=== PATIENT | female | born 1935 | race Caucasian/White ===

== ENCOUNTER 2018-10-12 23:46 | Emergency (ER) | payer OTHER | END 2018-10-13 01:41 | disposition home or self-care (01) | LOC: EDH 23:46 | DX: S00.83XA Contusion of other part of head, initial encounter (principal); S60.221A Contusion of right hand, initial encounter; S80.212A Abrasion, left knee, initial encounter; E11.9 Type 2 diabetes mellitus without complications; I10 Essential (primary) hypertension; W18.39XA Other fall on same level, initial encounter; Y93.01 Activity, walking, marching and hiking; Y92.89 Other specified places as the place of occurrence of the external cause; Y99.8 Other external cause status | CPT/HCPCS: 12031; 70450; 72125; 73130; 93005 ==

== ENCOUNTER 2019-08-22 12:00 | Inpatient (IN) | payer OTHER ==
[~2019-08-22] VITALS: Ht 157.5 cm; Wt 57.2 kg
[2019-08-22] VITALS (20 sets, daily range): BP systolic 94–140; BP diastolic 56–91
[~2019-08-22 12:00] MED LIST: ATROPINE SULFATE 0.1 MG/ML 10 ML SYG IVP ONE; DOPAMINE HCL 400 MG/D5%-WATER 250 ML IV ONE; EPINEPHRINE 0.1 MG/ML 10 ML SYG IVP ONE; SODIUM BICARB 8.4% 50ML SYRINGE IVP ONE
[2019-08-22 12:26] LABS: ABG BASE EXCESS -8.9 mmol/L (-2.0-3.0); ABG HCO3 23.8 mmol/L (21.0-28.0); ABG OXYGEN SATURATION 81.1 % (95.0-99.0); ABG PCO2 99 mmHg (32-45)
[2019-08-22] MEDS ORDERED: NOREPINEPHRINE BITARTRATE 1 MG/1 ML ML IV ONE (12:26)
[2019-08-22] MEDS ORDERED: SODIUM CHLORIDE 0.9% 100 ML IV ONE (12:27)
[2019-08-22 12:34] LABS: BASOPHILS % (AUTO) 0.2 % (0.0-5.0); EOSINOPHILS % (AUTO) 0.4 % (0.0-8.0); HEMATOCRIT 41.5 % (36-48); LYMPHOCYTES % (AUTO) 36.9 % (21.0-51.0); MEAN CORPUSCULAR HEMOGLOBIN 28.8 pg (27.0-33.0); MEAN CORPUSCULAR HGB CONC 30.5 g/dL (32.0-36.0); MEAN CORPUSCULAR VOLUME 94.5 fL (79-99); MONOCYTES % (AUTO) 5.2 % (3.0-13.0); NEUTROPHILS % (AUTO) 57.3 % (40.0-77.0); NUCLEATED RED BLOOD CELLS 0.1 % (0.0-0.19); PLATELET COUNT (AUTO) 155 K/uL (130-400); RED BLOOD CELL COUNT(AUTO) 4.39 MIL/uL (4.00-5.50); RED CELL DISTRIBUTION WIDTH 18.4 % (11.0-15.5); WHITE BLOOD COUNT (AUTO) 21.9 K/uL (4.8-10.8)
[2019-08-22 12:49] LABS: POTASSIUM 4.2 mmol/L (3.5-5.1); TOTAL PROTEIN, SERUM 5.4 g/dL (6.0-8.3)
--- NOTE | 2019-08-22 12:55 | NUR ---
EVELIN Pabon present for evelin mccabe. Sw provided with emotional support. Pt states they have been 60 years and he would like to keep her around a while longer. Pt does not have any directives in place. Cylinder Press Operator David with providing spiritual support.
[2019-08-22 13:20] LABS: INR 1.26 (0.85-1.15); PROTHROMBIN TIME 12.9 SEC (9.6-11.6)
[2019-08-22 13:40] LABS: APPEARANCE,URINE Clear (CLEAR); BILIRUBIN,URINE Negative (NEGATIVE); COLOR,URINE Dark Yellow (YELLOW); GLUCOSE, URINE (UA) Negative (NEGATIVE); KETONES,URINE Negative (NEGATIVE); LEUKOCYTE ESTERASE ,URINE Trace (NEGATIVE); NITRATE,URINE Negative (NEGATIVE); OCCULT BLOOD,URINE Negative (NEGATIVE); PROTEIN,URINE Trace mg/dL (NEGATIVE)
[2019-08-22 14:11] LABS: BACTERIA,URINE Many /HPF (None Seen); RBC,URINE 0-1 /HPF (0-1); SQUAMOUS EPITHELIAL CELL,UR Rare /HPF (0-2); WBC,URINE 0-1 /HPF (0-1)
--- NOTE | 2019-08-22 14:50 | NUR ---
f/u Sw present when Dr Vasquez spoke to regarding pt's condition, poor prognosis and code status. not wanting to sign DNR till after he speaks to his children. called daughter on phone and she told him not to sign anything, to wait a few days. Sw offered to have daughter speak to Dr Vasquez. Dr Vasquez currently speaking to daughter about condition, poor prognosis and code status.
[2019-08-22] MEDS ORDERED: FISH1CAP63 PO (15:12)
[2019-08-22] MEDS ORDERED: BETA60L TP (15:12)
[2019-08-22] MEDS ORDERED: LOSA1TAB37 PO (15:12)
[2019-08-22] MEDS ORDERED: LOVA20TA3 PO (15:12)
[2019-08-22] MEDS ORDERED: ASPI-555 PO (15:12)
[2019-08-22] MEDS ORDERED: TRIA1KT.2 TP (15:12)
[2019-08-22] MEDS ORDERED: FLUT16H NASAL (15:12)
[2019-08-22] MEDS ORDERED: CARV12.511 PO (15:12)
[2019-08-22] MEDS ORDERED: METF-444 PO (15:12)
[2019-08-22] MEDS ORDERED: LUTE6CAP2 PO (15:12)
[2019-08-22] MEDS ORDERED: LORAZEPAM 2 MG/ML 1 ML VIAL IVP PRN (15:15)
[2019-08-22] MEDS ORDERED: MAGNESIUM 2GM PREMIX 50ML 50 ML IV PRN (15:15)
[2019-08-22] MEDS ORDERED: PROPOFOL 1000 MG/100 ML IV PRN (15:15)
[2019-08-22] MEDS ORDERED: POTASSIUM CHLORIDE 20MEQ/100ML 100 ML IV PRN (15:15)
[2019-08-22] MEDS ORDERED: LIDOCAINE HCL-MPF 1% 2ML VIAL IV PRN (15:15)
[2019-08-22] MEDS ORDERED: CALCIUM GLUCONATE 1 GM in SODIUM CHLORIDE 0.9% 50 ML IV PRN (15:15)
--- NOTE | 2019-08-22 16:10 | NUR ---
Dr. Vasquez made aware of Cooling blanket written order inquiry. Place cooling blanket to maintain temp: 98.6f? Asked for specific ranges for cooling blanket temp range. As well as, another ABG order? Pending response at this time.
--- NOTE | 2019-08-22 16:15 | NUR ---
Cooling [place] No cooling blanket in CCU. Pending Machine to be brought up from ER, and [place] and Probe to be brought from [employer]. Ice Packs applied in an effort to satisfy request at this time.
[2019-08-22] MEDS ORDERED: DOPAMINE 800MG/D5 250ML 250 ML IV SCH (16:30)
[2019-08-22] MEDS ORDERED: NOREPINEPHRINE 4MG/NS 250ML 250 ML IV SCH (16:30)
[2019-08-22] MEDS ORDERED: PROPOFOL 1000 MG/100 ML 100 ML IV PRN (16:30)
[2019-08-22 17:22] LABS: ALBUMIN 2.3 g/dL (3.5-5.0); BILIRUBIN,TOTAL 3.1 mg/dL (0.2-1.0); POTASSIUM 3.5 mmol/L (3.5-5.1)
[2019-08-22] MEDS: DEXAMETHASONE SOD PHOSPHATE 4 MG/ML 1ML VIAL IVP SCH (18:00)
[2019-08-22] MEDS: LACTATED RINGERS 1000ML 1,000 ML IV SCH (18:00)
[2019-08-22] MEDS: INSULIN HUMULIN R 100 UNIT/ML 3ML SQ SCH ×2 (18:04→20:50)
--- NOTE | 2019-08-22 18:14 | NUR ---
Dopamine off 1714
[2019-08-22 18:21] LABS: ABG HCO3 14.5 mmol/L (21.0-28.0); ABG OXYGEN SATURATION 97.1 % (95.0-99.0); ABG PCO2 29 mmHg (32-45)
--- NOTE | 2019-08-22 19:30 | NUR ---
ASSESSMENT PT RESTING IN BED, UNRESPONSIVE, NOT FOLLOWING COMMANDS. IV FLUIDS INFUSING WITHOUT DIFFICULTY. ETT 7.5, 24 CM AT LIP A/C-18-50%-460 PEEP 5. OGT TO L.I.W.S. 18FR CALLEJAS CATH. ASSESSMENT COMPLETED, SEE FLOW SHEET. PT ORIENTED TO CALL[place] ND WITHIN REACH. WHITE BOARD UP-DATED.
[2019-08-22] MEDS: FAMOTIDINE/PF 20 MG/2 ML VIAL IV SCH (20:45)
[2019-08-22] MEDS: LEVETIRACETAM 750 MG in SODIUM CHLORIDE 0.9% 100 ML IV SCH (20:54)
[2019-08-22] MEDS: NOREPINEPHRINE 4MG/NS 250ML IV SCH (21:12)
[2019-08-23] VITALS (72 sets, daily range): BP systolic 94–145; BP diastolic 37–91
[2019-08-23] MEDS: INSULIN HUMULIN R 100 UNIT/ML 3ML SQ SCH ×6 (00:15→20:15)
[2019-08-23] MEDS: DEXAMETHASONE SOD PHOSPHATE 4 MG/ML 1ML VIAL IVP SCH ×4 (01:51→17:06)
[2019-08-23] MEDS: NOREPINEPHRINE 4MG/NS 250ML IV SCH ×2 (02:08→20:19)
[2019-08-23] MEDS: LACTATED RINGERS 1000ML 1,000 ML IV SCH ×2 (02:09→20:18)
--- NOTE | 2019-08-23 03:00 | NUR ---
ASSESSMENT PT RESTING IN BED, UNRESPONSIVE, NOT FOLLOWING COMMANDS. IV FLUIDS INFUSING WITHOUT DIFFICULTY. ETT 7.5, 24 CM AT LIP A/C-18-50%-460 PEEP 5. OGT TO L.I.W.S. 18FR CALLEJAS CATH. ASSESSMENT COMPLETED, SEE FLOW SHEET. CALLBELL WITHIN REACH.
[2019-08-23 04:09] LABS: HEMATOCRIT 47.2 % (36-48); MEAN CORPUSCULAR HEMOGLOBIN 28.3 pg (27.0-33.0); MEAN CORPUSCULAR HGB CONC 31.3 g/dL (32.0-36.0); MEAN CORPUSCULAR VOLUME 90.5 fL (79-99); PLATELET COUNT (AUTO) 136 K/uL (130-400); RED BLOOD CELL COUNT(AUTO) 5.21 MIL/uL (4.00-5.50); RED CELL DISTRIBUTION WIDTH 17.7 % (11.0-15.5)
[2019-08-23 04:12] LABS: WHITE BLOOD COUNT (AUTO) 47.3 K/uL (4.8-10.8)
--- NOTE | 2019-08-23 04:17 | NUR ---
JENNIFER RODRIGUEZ CALLED [phone] FOR A GCS OF (3). JENNIFER DENIED D/T AGE. REFERENCE NUMBER [id number]. INSTRUCTED TO NOTIFY JENNIFER AT TIME OF
[2019-08-23 04:35] LABS: BAND NEUTROPHILS % (MANUAL) 5 % (0-2); LYMPHOCYTES % (MANUAL) 9 % (22-44); MAN.DIFF COMMENT-IMPRESSION MANUAL DIFFERENTIAL; MONOCYTES % (MANUAL) 4 % (2-9); SEGMENTED NEUTROPHILS % 82 % (40-70)
[2019-08-23 04:36] LABS: PLATELET MORPHOLOGY COMMENT LARGE PLTS PRESENT
[2019-08-23 04:59] LABS: ALBUMIN 2.3 g/dL (3.5-5.0); BILIRUBIN,TOTAL 2.3 mg/dL (0.2-1.0); CREATININE 1.2 mg/dL (0.5-1.5); POTASSIUM 3.4 mmol/L (3.5-5.1); TOTAL PROTEIN, SERUM 6.1 g/dL (6.0-8.3)
[2019-08-23 05:06] LABS: ABG BASE EXCESS -2.8 mmol/L (-2.0-3.0); ABG HCO3 18.4 mmol/L (21.0-28.0); ABG OXYGEN SATURATION 98.3 % (95.0-99.0); ABG PCO2 24 mmHg (32-45)
--- NOTE | 2019-08-23 06:00 | NUR ---
TOMMY BASSETT MADE AWARE OF LAB RESULTS, ABG'S, KCL, WBC, AND TROPONIN LEVEL
--- NOTE | 2019-08-23 06:54 | NUR ---
REPORT BEDSIDE REPORT GIVEN TO ARMIDA GIRON, LABS REVIEWED AND CARE ENDORSED
[2019-08-23] MEDS ORDERED: FENTANYL CITRATE PF 50 MCG/1 ML 2ML VIAL ONE (08:07)
[2019-08-23] MEDS: FAMOTIDINE/PF 20 MG/2 ML VIAL IV SCH (08:16)
[2019-08-23] MEDS: LEVETIRACETAM 750 MG in SODIUM CHLORIDE 0.9% 100 ML IV SCH ×2 (08:17→20:18)
[2019-08-23] MEDS ORDERED: COMPOUND IV MISC 1 EACH IVSOLN MISC PRN (11:45)
[2019-08-23] MEDS ORDERED: VANCOMYCIN PROTOCOL PER PHARMACY IV SCH (12:00)
[2019-08-23] MEDS: ENOXAPARIN SODIUM 40 MG/0.4 ML SYRINGE SQ SCH (13:07)
[2019-08-23] MEDS: ZOSYN 3.375GM+NS 50ML 50 ML IV SCH (13:07)
--- NOTE | 2019-08-23 13:22 | NUR ---
PATIENT DOES NOT PRESENT WITH ANY SKIN BREAKDOWN OR OPEN WOUNDS AT THIS TIME, PER FLOOR NURSE MACK HUFFMAN; NO [facility] RECOMMENDATIONS SUBMITTED. Addendum: 08/23/19 at 1324 by ROSE HOWE LVN LVN W Amended: Links added.
[2019-08-23] MEDS: LEVOFLOXACIN 750 MG/D5W 150 ML 150 ML IV SCH (13:47)
--- NOTE | 2019-08-23 13:53 | NUR ---
PALLIATIVE Sw spoke to nurse Bernard. No family at bedside. Pt is now DNR. Daughter coming from [facility] tomorrow. Sw to follow up
[2019-08-23] MEDS ORDERED: VANCOMYCIN 1GM+NS 250ML 250 ML IV ONE (16:00)
--- NOTE | 2019-08-23 16:26 | NUR ---
Sw spoke to pt's . states "she was gone when she got here" " I am waiting for my daughter to get here tomorrow and we are going to pull plug" Sw provided emotional support
--- NOTE | 2019-08-23 16:47 | NUR ---
DC PLAN VISITED WITH PATIENT. PATIENT LIVES WITH SPOUSE. PATIENT HAS ARRESTED SEVERAL TIMES. PIT AND AUXILIARIES SUPERVISOR WORKING ON CASE. BENCHMARK RECOMMENDING WITHDRAWL OR AT LEAST DNR/DNI. PENDING DAUGHTER TO ARRIVE. Addendum: 08/23/19 at 1653 by BENNY COVARRUBIAS RN CM Amended: Links added.
[2019-08-23 21:35] LABS: APPEARANCE,URINE Turbid (CLEAR); BILIRUBIN,URINE Moderate (NEGATIVE); COLOR,URINE Dark Yellow (YELLOW); GLUCOSE, URINE (UA) TRACE mg/dL (NEGATIVE); KETONES,URINE Trace mg/dL (NEGATIVE); LEUKOCYTE ESTERASE ,URINE Moderate (NEGATIVE); NITRATE,URINE Positive (NEGATIVE); OCCULT BLOOD,URINE Moderate (NEGATIVE); PROTEIN,URINE POS 2+ mg/dL (NEGATIVE)
[2019-08-23 21:54] LABS: BACTERIA,URINE Moderate /HPF (None Seen); SQUAMOUS EPITHELIAL CELL,UR 0-2 /HPF (0-2)
[2019-08-23 21:55] LABS: MUCUS,URINE Moderate LPF (None Seen)
[2019-08-24] VITALS (66 sets, daily range): BP systolic 85–139; BP diastolic 37–86
[2019-08-24] MEDS: INSULIN HUMULIN R 100 UNIT/ML 3ML SQ SCH ×6 (00:15→22:49)
[2019-08-24] MEDS: ZOSYN 3.375GM+NS 50ML 50 ML IV SCH ×2 (01:30→14:24)
[2019-08-24 04:38] LABS: ABG BASE EXCESS -10.9 mmol/L (-2.0-3.0); ABG HCO3 11.7 mmol/L (21.0-28.0); ABG OXYGEN SATURATION 96.5 % (95.0-99.0); ABG PCO2 21 mmHg (32-45)
[2019-08-24 06:31] LABS: ALBUMIN 1.9 g/dL (3.5-5.0); BILIRUBIN,TOTAL 3.1 mg/dL (0.2-1.0); CREATININE 1.4 mg/dL (0.5-1.5); POTASSIUM 4.3 mmol/L (3.5-5.1); TOTAL PROTEIN, SERUM 5.7 g/dL (6.0-8.3)
[2019-08-24] MEDS: DEXAMETHASONE SOD PHOSPHATE 4 MG/ML 1ML VIAL IVP SCH ×5 (06:39→23:30)
[2019-08-24] MEDS: VANCOMYCIN 500MG+NS 100ML 100 ML IV SCH ×2 (06:39→17:06)
[2019-08-24 07:19] LABS: MEAN CORPUSCULAR HEMOGLOBIN 28.4 pg (27.0-33.0); MEAN CORPUSCULAR HGB CONC 31.3 g/dL (32.0-36.0); MEAN CORPUSCULAR VOLUME 90.6 fL (79-99); PLATELET COUNT (AUTO) 93 K/uL (130-400); RED BLOOD CELL COUNT(AUTO) 5.07 MIL/uL (4.00-5.50); RED CELL DISTRIBUTION WIDTH 18.1 % (11.0-15.5)
[2019-08-24 07:25] LABS: WHITE BLOOD COUNT (AUTO) 52.2 K/uL (4.8-10.8)
[2019-08-24 07:46] LABS: LYMPHOCYTES % (MANUAL) 7 % (22-44); MAN.DIFF COMMENT-IMPRESSION MANUAL DIFFERENTIAL; MONOCYTES % (MANUAL) 2 % (2-9); SEGMENTED NEUTROPHILS % 91 % (40-70)
[2019-08-24 07:47] LABS: PLATELET MORPHOLOGY COMMENT DECREASED
[2019-08-24] MEDS: LACTATED RINGERS 1000ML 1,000 ML IV SCH (07:58)
[2019-08-24] MEDS: ENOXAPARIN SODIUM 40 MG/0.4 ML SYRINGE SQ SCH (08:07)
[2019-08-24] MEDS: FAMOTIDINE/PF 20 MG/2 ML VIAL IV SCH (08:07)
[2019-08-24] MEDS: LEVETIRACETAM 750 MG in SODIUM CHLORIDE 0.9% 100 ML IV SCH ×2 (08:07→22:47)
[2019-08-24] MEDS ORDERED: COMPOUND IV REFRIGERATED 1 EACH IVSOLN MISC PRN (08:15)
[2019-08-24] MEDS ORDERED: FENTANYL 2500MCG+NS 250ML 250 ML IV PRN (08:30)
[2019-08-24] MEDS: SODIUM BICARB 8.4% 50ML SYRING 150 MEQ in DEXTROSE 5%-WATER 1,000 ML IV SCH ×2 (09:01→20:15)
--- NOTE | 2019-08-24 10:06 | NUR ---
f/u No family at bedside. Per nurse Bernard, we continue to wait for daughter Samantha to arrive.
[2019-08-24] MEDS: NOREPINEPHRINE 4MG/NS 250ML IV SCH (11:04)
[2019-08-24] MEDS ORDERED: VANCOMYCIN 750MG + NS 250 ML IV SCH ×2 (12:00)
--- NOTE | 2019-08-24 13:55 | NUR ---
RD Notification Admitted s/p Cardiac arrest. Pt Hx of DM, HTN. Notification for tube feeding recommendations received. Tube feeding recommendations: Glucerna 1.5, Goal Rate: 40mls/hr (1440kcal/79gm Protein). Recommended flushes: 130 Q6hrs. Pt LBM 08/22/19. Pt monitored labs: Na 148, CO2 15, BUN 35, GFR 38, T. Bili 3.1, AST 919, ALT 986, Alk 176, Alb 1.9. RD to continue to monitor. Please notify RD as additional nutrition concerns arise. Thank you. Addendum: 08/24/19 at [address] Amended: Links added.
--- NOTE | 2019-08-24 16:00 | NUR ---
[facility] consult Patient assessed as ordered. Patient with purple area with fluid-filled blister to coccyx. Origin of wound possibly due to fall at home. [facility] recommendations submitted. Addendum: 08/24/19 at 1628 by CLAIRE ZELAYA RN/KRUPA Amended: Links added.
[2019-08-25] VITALS (49 sets, daily range): BP systolic 91–160; BP diastolic 45–75
[2019-08-25] MEDS: NOREPINEPHRINE 4MG/NS 250ML IV SCH (01:06)
[2019-08-25] MEDS: INSULIN HUMULIN R 100 UNIT/ML 3ML SQ SCH ×4 (01:18→12:06)
[2019-08-25] MEDS: ZOSYN 3.375GM+NS 50ML 50 ML IV SCH ×2 (02:51→13:30)
[2019-08-25] MEDS: VANCOMYCIN 500MG+NS 100ML 100 ML IV SCH ×2 (04:46→06:00)
[2019-08-25] MEDS: DEXAMETHASONE SOD PHOSPHATE 4 MG/ML 1ML VIAL IVP SCH ×2 (05:33→11:48)
[2019-08-25 05:37] LABS: HEMATOCRIT 36.5 % (36-48); MEAN CORPUSCULAR HGB CONC 32.7 g/dL (32.0-36.0); MEAN CORPUSCULAR VOLUME 88.6 fL (79-99); NUCLEATED RED BLOOD CELLS 0.2 % (0.0-0.19); PLATELET COUNT (AUTO) 82 K/uL (130-400); RED BLOOD CELL COUNT(AUTO) 4.12 MIL/uL (4.00-5.50)
[2019-08-25 05:47] LABS: WHITE BLOOD COUNT (AUTO) 32.5 K/uL (4.8-10.8)
[2019-08-25 05:57] LABS: CREATININE 2.2 mg/dL (0.5-1.5); POTASSIUM 3.9 mmol/L (3.5-5.1)
[2019-08-25 06:24] LABS: BAND NEUTROPHILS % (MANUAL) 2 % (0-2); LYMPHOCYTES % (MANUAL) 8 % (22-44); MONOCYTES % (MANUAL) 2 % (2-9); SEGMENTED NEUTROPHILS % 88 % (40-70)
[2019-08-25 06:25] LABS: MAN.DIFF COMMENT-IMPRESSION MANUAL DIFFERENTIAL; PLATELET MORPHOLOGY COMMENT MARKED DECREASE
--- NOTE | 2019-08-25 06:30 | NUR ---
VANCO TROUGH 0600 VANCOMYCIN HOLD VANCO TROUGH 29.5
[2019-08-25] MEDS: SODIUM BICARB 8.4% 50ML SYRING 150 MEQ in DEXTROSE 5%-WATER 1,000 ML IV SCH (06:39)
[2019-08-25] MEDS: FAMOTIDINE/PF 20 MG/2 ML VIAL IV SCH (08:29)
[2019-08-25] MEDS: ENOXAPARIN SODIUM 40 MG/0.4 ML SYRINGE SQ SCH (08:30)
[2019-08-25] MEDS: LEVETIRACETAM 750 MG in SODIUM CHLORIDE 0.9% 100 ML IV SCH (08:30)
[2019-08-25] MEDS: LEVOFLOXACIN 750 MG/D5W 150 ML 150 ML IV SCH (11:48)
[2019-08-25] MEDS ORDERED: LORAZEPAM 2 MG/ML 1 ML VIAL IVP PRN (13:00)
--- NOTE | 2019-08-25 13:00 | NUR ---
WITHDRAWL OF LIFE SUPPORT PATIENT TO BE TAKEN OFF VENTILATOR AND ANY MEASURES OF LIFE SUPPORT PER FAMILY REQUEST. COMFORT MEASURES ONLY Addendum: 08/25/19 at 1704 by NORMAN ORNELAS RN RN WITHDRAWL OF LIFE SUPPORT PATIENT TO BE TAKEN OFF VENTILATOR AND ANY MEASURES OF LIFE SUPPORT PER FAMILY REQUEST. COMFORT MEASURES ONLY; PER , WE ARE TO CALL [facility] ONCE PATIENT HAS
--- NOTE | 2019-08-25 15:00 | NUR ---
EXTUBATED PATIENT EXTUBATED AND PLACED ON 40%CAM; REMAINS UNRESPONSIVE; FAMILY NOT AT BEDSIDE; ASKED THAT WE CALL HIM IF PATIENT EXPIRES OR IS TRANSFERRED TO MEDICAL FLOOR; WITHDRAWL OF CARE FORM SIGNED BY AND DAUGHTER AT 1300 TODAY
[2019-08-25] MEDS: MORPHINE SULFATE 2 MG/ML 1ML SYG IVP PRN (15:13)
--- NOTE | 2019-08-25 18:00 | NUR ---
TRANSFER/DOWNGRADE PATIENT TRANSFERRED TO ROOM 316 AND REPORT GIVEN TO AARON MED SURG NURSE; PATIENT'S , NOEL, ALSO INFORMED OF PATIENT TRANSFER
--- NOTE | 2019-08-25 18:00 | NUR ---
REPORT RECEIVED FROM DARIAN 2ND. FLOOR,ICU. PT. NOW TO ROOM 316. REPORTED PT. IS UNRESPONSIVE. PUPILS ARE A 1 AND FIXED. SKIN IS VERY PALE AND COOL TO TOUCH. DNR AND CARE LIMITED TO COMFORT MEASURES ONLY. PER ICU NURSE, AND DAUGHTER HAVE SAID THEIR GOD-BYES AND WANT TO BE CALLED WHEN SHE PASSES. ARRANGEMENTS ARE SUPPOSEDLY ALREADY MADE AT [facility] HOME. REPORT NOW PASSED ON TO PM NURSE.
--- NOTE | 2019-08-25 20:00 | NUR ---
PATIENT SEEN AND MADE ROUNDS. PATIENT UNRESPONSIVE, RR 40 BREATH/MIN, MAINTAINED ON O2 . COMFORT MEASURES RENDERED.
--- NOTE | 2019-08-25 20:30 | NUR ---
ASSESS SHIFT ASSESSMENT DONE, PLEASE REFER TO CHART. PT ON COMFORT MEASURES AT THIS TIME. WILL MONITOR PT. Addendum: 08/25/19 at 2347 by FREEMAN LAINEZ RN RN Amended: Links added.
--- NOTE | 2019-08-25 22:30 | NUR ---
[facility] PCP GAVE PT A BED BATH. KEPT WARM AND DRY. KEPT COMFORTABLE WITH HOB ELEVATED. PT REMAINS UNRESPONSIVE AT THIS TIME. WILL MONITOR PT.
--- NOTE | 2019-08-26 02:00 | NUR ---
ROUNDS NO CHANGE IN PT'S CONDITION. STILL WITH SHALLOW BREATHING BUT NO NOTED RESTLESSNESS. WILL MONITOR PT.
--- NOTE | 2019-08-26 06:45 | NUR ---
ROUNDS STILL NO CHANGE ON PT'S CONDITION. KEPT COMFORTABLE. FOR MORE CARE.
[2019-08-26] MEDS: MORPHINE SULFATE 2 MG/ML 1ML SYG IVP PRN (11:24)
--- NOTE | 2019-08-26 20:00 | NUR ---
PATIENT SEEN AND MADE ROUNDS. PATIENT UNRESPONSIVE, RR 40 BREATH/MIN, MAINTAINED ON O2 . COMFORT MEASURES RENDERED. DOCUMENT WRITTEN ON 08/25/20191999 WAS ENTERED IN ERROR, PLEASE DISREGARD , ENTERED INCORRECT DATE.
--- NOTE | 2019-08-27 01:59 | NUR ---
SUMMONED BY STAFF TO PATIENT'S ROOM. PT. SUPINE IN BED. NO BLOOD PRESSURE, BREATH SOUNDS OR HEART TONES AUDIBLE ON AUSCULTATION. PUPILS FIXED AND DILATED. TIME OF : 015
--- NOTE | 2019-08-27 02:20 | NUR ---
FAMILY ATTEMPTED TO CALL THE CONTACT NUMBER OF THE NOEL [facility] [phone], NO ONE ANSWER, LEFT A VOICEMAIL TO CALL ME BACK FROM [facility], LEFT A PHONE NUMBER [phone]. PENDING FOR CALL BACK.
--- NOTE | 2019-08-27 04:00 | NUR ---
TRIED TO CALL BACK AGAIN NOEL [facility], CONTACT NUMBER ON FILE [phone], NO ONE ANSWERING LEFT A VOICEMAIL TO CALL ME BACK AT [facility] TO CONTACT NUMBER [phone] OR CONTACT NUMBER [phone]. INFORMED DJ THE WASHROOM CLEANER ABOUT IT. THE ROSARY WAS WITH THE BODY, THE BODY WAS SENT IN THE [place] BY SECURITY PERSONNEL ALREADY.
== END 2019-08-27 01:59 | disposition expired | DRG 208 ==
LOC: EDH 12:00 → EDHIP 13:25 → 2BH 14:18 → 3CH 08-25 18:33 → 3DH 08-26 14:48
PROVIDERS: ADMIT Internal Medicine Critical Care Medicine; ATTEND Internal Medicine Critical Care Medicine
PROC: 02HV33Z Insertion of Infusion Device into Superior Vena Cava, Percutaneous Approach (ICD-10-PCS; principal; 2019-08-22)
PROC: 5A1945Z Respiratory Ventilation, 24-96 Consecutive Hours (ICD-10-PCS; 2019-08-22)
PROC: 5A12012 Performance of Cardiac Output, Single, Manual (ICD-10-PCS; 2019-08-22)
PROC: 0BH17EZ Insertion of Endotracheal Airway into Trachea, Via Natural or Artificial Opening (ICD-10-PCS; 2019-08-22)
DX: J96.01 Acute respiratory failure with hypoxia (principal); G93.6 Cerebral edema; G93.1 Anoxic brain damage, not elsewhere classified; J90 Pleural effusion, not elsewhere classified; E87.2 Acidosis; N17.9 Acute kidney failure, unspecified; G93.40 Encephalopathy, unspecified; C34.90 Malignant neoplasm of unspecified part of unspecified bronchus or lung; C79.31 Secondary malignant neoplasm of brain; I47.2 Ventricular tachycardia; I46.9 Cardiac arrest, cause unspecified; R63.4 Abnormal weight loss; D72.829 Elevated white blood cell count, unspecified; E11.9 Type 2 diabetes mellitus without complications; I10 Essential (primary) hypertension; R22.2 Localized swelling, mass and lump, trunk; Z51.5 Encounter for palliative care; Z66 Do not resuscitate; K27.9 Peptic ulcer, site unspecified, unspecified as acute or chronic, without hemorrhage or perforation; T68.XXXA Hypothermia, initial encounter; X31.XXXA Exposure to excessive natural cold, initial encounter; Z87.891 Personal history of nicotine dependence; Z68.30 Body mass index [BMI] 30.0-30.9, adult
CPT/HCPCS: 36415; 36600; 70450; 71045; 71250; 80048; 80053; 80202; 81001; 82435; 82550; 82803; 82947; 82948; 83605; 84132; 84295; 84484; 85018; 85025; 85027; 85060; 85610; 85730; 87040; 87071; 87205; 92950; 93005; 94002; 94003; G0378; J0171; J0461; J1100; J1265; J1650; J1815; J1953; J1956; J2060; J2543; J3010; J3370; J3480; J3490; J7030; J7070; J7120